=== PATIENT | female | born 1965 | race American Indian/Alaskan Native ===

== ENCOUNTER 2018-09-25 14:33 | Emergency (ER) | payer BC ==
[2018-09-25 14:50] VITALS: BP 162/119
[2018-09-25] MEDS ORDERED: Ondansetron 4 MG/2 ML SDV IVPUSH ONE (14:52)
[2018-09-25] MEDS ORDERED: Ketorolac 30 MG/ML SDV IVPUSH ONE (14:53)
[2018-09-25] MEDS ORDERED: Sodium Chloride 0.9% 1,000 ML IV SCH (15:00)
--- NOTE | 2018-09-25 15:07 | EDM.PDOC ---
ED HPI GENERAL MEDICAL PROBLEM - General Chief Complaint: Abdominal Pain Stated Complaint: RT SIDE PAIN Time Seen by Provider: 09/25/18 14:50 Source of Information: Reports: Patient, RN Notes Reviewed History Limitations: Reports: No Limitations - History of Present Illness INITIAL COMMENTS - FREE TEXT/NARRATIVE: Patient is a 53-year-old female who presents to the ED for evaluation of right flank pain that began suddenly 1 hour ago. She notes that she had a very small pain yesterday in the same area but it was not bothersome at that time. She states that today the pain has increased and would rate this at a 15 out of 10 on the pain scale. She states the pain kind of comes and goes in waves. She does not note anything that really worsen this or makes this feel better. She states she does not have a history kidney stones nor has she had a pain like this before ever in her life. She did not eat any type of foods that would have caused any aggravation to this. She denies any dysuria, urinary frequency , urinary urgency at this time. She has had her gallbladder removed and her uterus removed. Right Lower Abdominal Pain Score (Numeric/FACES): 10 - Related Data Allergies Allergy/AdvReac Type Severity Reaction Status Date / Time raspberry Allergy Other Verified 09/25/18 14:49 Home Meds: Home Meds Meloxicam [Mobic] 15 mg PO DAILY 10/26/15 [History] HYDROmorphone [Dilaudid] 2 mg PO Q4H PRN #16 tab 09/25/18 [Rx] Naproxen [Naprosyn] 500 mg PO Q12HR #20 tab 09/25/18 [Rx] Ondansetron [Zofran ODT] 4 mg PO Q6H PRN #28 tab.dis 09/25/18 [Rx] Past Medical History Musculoskeletal History: Reports: Back Pain, Chronic Other Musculoskeletal History: bulging discs - Past Surgical History GI Surgical History: Reports: Cholecystectomy Female Surgical History: Reports: Hysterectomy Social & Family History - Family History Family Medical History: Noncontributory - Tobacco Use Smoking Status *Q: Never Smoker - Recreational Drug Use Recreational Drug Use: No - Living Situation & Occupation Living situation: Reports: , with Family Occupation: Employed ED ROS GENERAL - Review of Systems Review Of Systems: See Below Constitutional: Denies: Fever, Chills HEENT: Reports: No Symptoms Respiratory: Reports: No Symptoms Cardiovascular: Reports: No Symptoms Endocrine: Reports: No Symptoms : Reports: Flank Pain (Right). Denies: Dysuria, Frequency, Urgency Musculoskeletal: Reports: No Symptoms Skin: Reports: No Symptoms Neurological: Reports: No Symptoms Psychiatric: Reports: No Symptoms Hematologic/Lymphatic: Reports: No Symptoms Immunologic: Reports: No Symptoms ED EXAM, RENAL/ - Physical Exam Exam: See Below Exam Limited By: No Limitations General Appearance: Alert, WD/WN, Mild Distress (Pt is balled up on the bed tapping her foot in obvious pain.) Eye Exam: Bilateral Eye: Normal Inspection Ears: Normal External Exam Nose: Normal Inspection Throat/Mouth: Normal Inspection, Normal Oropharynx Head: Atraumatic, Normocephalic Neck: Normal Inspection Respiratory/Chest: No Respiratory Distress, Lungs Clear, Normal Breath Sounds, No Accessory Muscle Use, Chest Non-Tender Cardiovascular: Normal Peripheral Pulses, Regular Rate, Rhythm, No Murmur GI/Abdominal: Normal Bowel Sounds, Soft, No Distention, Tender (Right flank pain ). No: Rigid, Rebound Back Exam: Normal Inspection. No: CVA Tenderness (L), CVA Tenderness (R) Extremities: Normal Inspection, Normal Capillary Refill Neurological: Alert, Oriented, Normal Cognition, No Motor/Sensory Deficits Psychiatric: Normal Affect, Normal Mood Skin Exam: Warm, Dry, Intact, Normal Color, No Rash Course - Vital Signs Last Recorded V/S: Last Vital Signs Temp 97.1 F 09/25/18 14:45 Pulse 56 L 09/25/18 14:45 Resp 16 09/25/18 14:45 BP 162/119 H 09/25/18 14:45 Pulse Ox 97 09/25/18 14:45 - Orders/Labs/Meds Orders: Active Orders 24 hr Category Date Time Status Strain Urine [RC] ASDIRECTED Care 09/25/18 14:52 Ordered UA W/MICROSCOPIC [URIN] Stat Lab 09/25/18 14:52 Ordered Sodium Chloride 0.9% @ 150 MLS/HR (1000ml Bag) Med 09/25/18 15:00 Ordered Sodium Chloride 0.9% [Normal Saline] 1,000 ml IV ASDIRECTED Medication Orders Sodium Chloride (Normal Saline) 1,000 mls @ 150 mls/hr IV ASDIRECTED ZOË Last Admin: 09/25/18 15:00 Dose: 150 mls/hr Meds: Medications Generic Name Dose Route Start Last Admin Trade Name Jhoan PRN Reason Stop Dose Admin Sodium Chloride 1,000 mls @ 150 mls/hr 09/25/18 15:00 09/25/18 15:00 Normal Saline IV 150 mls/hr ASDIRECTED ZOË Administration Discontinued Medications Generic Name Dose Route Start Last Admin Trade Name Jhoan PRN Reason Stop Dose Admin Hydromorphone HCl 0.5 mg 09/25/18 15:22 09/25/18 15:26 Dilaudid IVPUSH 09/25/18 15:23 0.5 mg ONETIME ONE Administration Hydromorphone HCl 0.5 mg 09/25/18 17:16 09/25/18 17:24 Dilaudid IVPUSH 09/25/18 17:17 0.5 mg ONETIME ONE Administration Ketorolac Tromethamine 30 mg 09/25/18 14:53 09/25/18 15:00 Toradol IVPUSH 09/25/18 14:54 30 mg ONETIME ONE Administration Ondansetron HCl 4 mg 09/25/18 14:52 09/25/18 15:00 Zofran IVPUSH 09/25/18 14:53 4 mg ONETIME ONE Administration - Re-Assessments/Exams Free Text/Narrative Re-Assessment/Exam: 09/25/18 15:08 Patient presents to the ED for evaluation of sudden onset abdominal pain. This is suspicious for kidney stone, I have ordered an abdomen/pelvis CT without contrast, 30 mg IV Toradol, 4 mg IV Zofran and some IV fluids for management of this. 09/25/18 15:28 RN informs me that the patient is still in an obvious amount of pain, initially she requested no strong pain medications however at this time I have ordered 0.5 mg IV Dilaudid to be giving 0.25 mg at a time for pain relief, the patient states that she gets really sleepy from narcotic pain medications, hence why she did not want to take him to begin with. We will start this low and slow and see how she tolerates a small dose. 09/25/18 16:[address] results are back and show that she has a 4.2 mm stone in the proximal right ureter near the UPJ, and 2 adjacent nonobstructing calculi seen within the lower right kidney and the largest one is measuring approximately 8 mm. 09/25/18 17:51 Will provide the patient with oral 2mg dilaudid for pain relief. She is to take 1/2 tablet to 1 full tablet every 4 hours as needed until the stone passes. She has been provided with Naprosyn for pain relief, she is to take this every 12 hours for pain relief. She has been provided with a script for zofran as well. Will recommend that she strain her urine and increase oral fluid intake. Departure - Departure Time of Disposition: 17:55 Disposition: Home, Self-Care 01 Condition: Fair Clinical Impression: Kidney stone on right side - Discharge Information *PRESCRIPTION DRUG MONITORING PROGRAM REVIEWED*: No *COPY OF PRESCRIPTION DRUG MONITORING REPORT IN PATIENT [place]: No Prescriptions: Naproxen [Naprosyn] 500 mg PO Q12HR #20 tab HYDROmorphone [Dilaudid] 2 mg PO Q4H PRN #16 tab PRN Reason: Pain Ondansetron [Zofran ODT] 4 mg PO Q6H PRN #28 tab.dis PRN Reason: Nausea Instructions: Kidney Stones, [id number], Dietary Guidelines to Help Prevent Kidney Stones Referrals: Rhina Sánchez, [employer] [Primary Care Provider] - Forms: ED Department Discharge Additional Instructions: You have been evaluated in the ED today for your right sided flank pain. Your CT demonstrated that you did have a kidney stone on your right side, this should take a few days to pass. You have been provided with pain medication please 1/2 to 1 full tablet of the Dilaudid every 4 hrs PRN for pain not taken away from the Naprosyn alone. You have been provided with oral Zofran for nausea please take this every 8 hours when necessary. You have been provided with Naprosyn please take this one tab by mouth twice a day for pain relief. These medications have been electronically sent to the [facility] in the [employer] [facility] Please increase her oral fluid intake as this will help the stone pass, please strain your urine to make sure that the stone has passed and few days. Please return to the ED if her symptoms change or worsen. - My Orders Last 24 Hours: My Active Orders 09/25/18 14:52 Strain Urine [RC] ASDIRECTED UA W/MICROSCOPIC [URIN] Stat 09/25/18 15:00 Sodium Chloride 0.9% @ 150 MLS/HR (1000ml Bag) Sodium Chloride 0.9% [Normal Saline] 1,000 ml IV ASDIRECTED - Assessment/Plan Last 24 Hours: My Active Orders 09/25/18 14:52 Strain Urine [RC] ASDIRECTED UA W/MICROSCOPIC [URIN] Stat 09/25/18 15:00 Sodium Chloride 0.9% @ 150 MLS/HR (1000ml Bag) Sodium Chloride 0.9% [Normal Saline] 1,000 ml IV ASDIRECTED
[2018-09-25] MEDS ORDERED: HYDROmorphone 1 MG/ML Syringe IVPUSH ONE ×2 (15:22→17:16)
--- NOTE | 2018-09-25 16:21 | CT ---
CT abdomen and pelvis Technique: Multiple axial sections were obtained from above the dome of the diaphragm inferiorly through the pubic symphysis. Intravenous and oral contrast not utilized. Study has been performed as ureteral stone protocol. Comparison: Previous CT abdomen and pelvis exam of 11/06/10. Findings: Right kidney collecting system is mildly dilated. These findings are caused by an obstructing stone located within the proximal right ureter near the UPJ measuring about 4.2 mm. 2 adjacent nonobstructing calculi are seen within the lower right kidney with largest measuring approximately 8 mm. No other abnormal calcifications are seen within the kidneys or ureters. Small portion of the visualized lung bases show nothing acute. Small cyst is noted within the dome of the right lobe of the liver measuring 6 mm compatible with a cyst. Second cyst is noted more inferiorly within the posterior right lobe of the liver measuring 1.3 cm. Largest cyst is noted posteriorly within the liver measuring 3.3 cm. Surgical clips are seen from prior cholecystectomy. Spleen appears within normal limits. Pancreas is within normal limits. Aorta shows no aneurysm. No retroperitoneal adenopathy or mesenteric abnormalities are seen. Appendix is seen which shows no dilatation. Small calcification is seen within the appendix compatible with small appendicolith. No pelvic mass or adenopathy is seen. No free fluid or inflammatory change is noted. Previous hysterectomy is noted. Bone window settings were reviewed which shows scattered degenerative change within the spine with vacuum phenomena is seen within the L3-4, L4-5 and L5-S1 discs. Impression: 1. Obstructing calculus measuring 4.2 mm located near the UPJ on the right side. 2. 2 nonobstructing calculi within the lower right kidney. 3. Other incidental findings as noted above. Diagnostic code #3
== END 2018-09-25 18:14 | disposition home or self-care (01) ==
LOC: JD.ED 14:33
DX: N20.2 Calculus of kidney with calculus of ureter (principal); Z91.018 Allergy to other foods; Z79.899 Other long term (current) drug therapy
CPT/HCPCS: 74176; 96361; 96374; 96375; 96376; 99284; J1170; J1885; J2405; J7040

== ENCOUNTER 2018-12-19 13:03 | Emergency (ER) | payer BC ==
[2018-12-19 13:15] VITALS: BP 147/118
[2018-12-19] MEDS ORDERED: Metoclopramide 10 MG/2 ML SDV IVPUSH ONE (13:22)
[2018-12-19] MEDS ORDERED: HYDROmorphone 1 MG/ML Syringe IVPUSH ONE (13:22)
[2018-12-19] MEDS ORDERED: HYDROmorphone 1 MG/ML Syringe ONE (13:26)
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
[2018-12-19] MEDS ORDERED: Sodium Chloride 0.9% 1,000 ML IV SCH (13:30)
--- NOTE | 2018-12-20 07:21 | CR ---
Chest: Portable view of the chest was obtained. Comparison: Prior chest x-ray is not available. Heart is slightly prominent. Tortuous thoracic aorta is seen. Lungs are clear. Bony structures are grossly intact. Impression: 1. Heart size is slightly prominent although is accentuated from portable technique. 2. Nothing acute is definitely identified on portable chest x-ray. Diagnostic code #2
--- NOTE | 2018-12-20 08:08 | CR ---
Right wrist: Four views of the right wrist were obtained. Comparison: No prior wrist exam. Slightly comminuted distal radial fracture is seen with articular extension and posterior impaction. Posterior tilt of the distal radial articular margin is seen. Deformity of the ulnar styloid process is seen having the appearance of an old ununited fracture. No additional bony abnormality is appreciated. Soft tissue swelling is noted. Impression: 1. Distal radial fracture as described above. 2. Other findings believed to be incidental. Diagnostic code #3
--- NOTE | 2018-12-20 08:08 | CR ---
Right tibia and fibula: AP and lateral views of the right tibia and fibula were obtained. Comparison: No previous study. Plantar spur is noted. Spur noted at the attachment of the Achilles tendon to the calcaneus is seen. Incidental soft tissue calcifications are present within the deleon. Mild chondrocalcinosis is noted within the menisci of the knee. No acute fracture or dislocation is seen. Impression: 1. Calcaneal spurs and soft tissue findings. 2. No acute bony abnormality is appreciated. Diagnostic code #2
== END 2018-12-19 15:37 | disposition home or self-care (01) ==
LOC: JD.ED 13:03
DX: S52.501A Unspecified fracture of the lower end of right radius, initial encounter for closed fracture (principal); S52.611A Displaced fracture of right ulna styloid process, initial encounter for closed fracture; S80.11XA Contusion of right lower leg, initial encounter; M54.5 Low back pain; V86.99XA Unspecified occupant of other special all-terrain or other off-road motor vehicle injured in nontraffic accident, initial encounter
CPT/HCPCS: 29125; 36415; 71045; 73110; 73590; 80053; 85007; 85027; 93005; 96361; 96374; 96375; 99284; J1170; J2765; J7040; 29105; 93010

== ENCOUNTER 2020-01-19 21:47 | Emergency (ER) | payer BC ==
[2020-01-19 22:10] VITALS: BP 130/78; PULSE 73
[2020-01-19] MEDS ORDERED: cefTRIAXone 1 GM, Lidocaine 1% 2.1 ML IM SCH ×2 (22:15)
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
[2020-01-19] MEDS ORDERED: Diphtheria,Pertussis(Acell),Tetanus Vaccine 0.5 ML Syringe IM ONE (22:21)
== END 2020-01-19 22:39 | disposition home or self-care (01) ==
LOC: JD.ED 21:47
DX: S80.811A Abrasion, right lower leg, initial encounter (principal); L03.115 Cellulitis of right lower limb; Z23 Encounter for immunization; Z91.018 Allergy to other foods; Z79.899 Other long term (current) drug therapy; X58.XXXA Exposure to other specified factors, initial encounter
CPT/HCPCS: 90471; 90715; 96372; 99283; J0696; J2001

== ENCOUNTER 2020-05-25 17:25 | Emergency (ER) | payer BC ==
[2020-05-25 17:39] VITALS: BP 169/97; PULSE 73
[2020-05-25] MEDS ORDERED: Linezolid 600 MG in Premix Bag 1 BAG IV ONE (17:48)
[2020-05-25] MEDS ORDERED: Sodium Chloride 0.9% 10 ML Syringe FLUSH PRN (17:48)
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
== END 2020-05-25 19:45 | disposition home or self-care (01) ==
LOC: JD.ED 17:25
DX: L03.115 Cellulitis of right lower limb (principal); M19.90 Unspecified osteoarthritis, unspecified site; Z79.899 Other long term (current) drug therapy; Z91.018 Allergy to other foods
CPT/HCPCS: 36415; 85025; 86140; 96365; 99283; J2020; 99284

== ENCOUNTER 2020-12-29 08:17 | Emergency (ER) | payer BC ==
[2020-12-29 08:30] VITALS: BP 170/105; PULSE 81
--- NOTE | 2020-12-29 08:38 | EDM.PDOC ---
ED HPI GENERAL MEDICAL PROBLEM - General Chief Complaint: General Stated Complaint: LEG BLEEDING Time Seen by Provider: 12/29/20 08:27 - History of Present Illness INITIAL COMMENTS - FREE TEXT/NARRATIVE: 55-year-old female presents the emergency room with bleeding from her right leg. Patient has had ulcerations on the lateral aspect of her right lower leg since May of this last year. She has been seen a few times by the wound care people in [place]. And has been seen a few times here in the emergency room. She thinks this initially started after she had a anterior deleon injury after she inadvertently kicked the bucket of a tractor. She had a cellulitis there if this did get better with treatment but then it seemed to come back on the lateral aspect of her leg. Today the patient changed her dressing and noticed that it started bleeding quite heavily. They got a good wrap on it and by the time she got here it was done bleeding. - Related Data Allergies Allergy/AdvReac Type Severity Reaction Status Date / Time raspberry Allergy Severe Hives Verified 12/29/20 08:30 Home Meds: Home Meds Meloxicam [Mobic] 15 mg PO DAILY 10/26/15 [History] Magnesium Oxide [Mag-Oxide] 800 mg PO DAILY 01/19/20 [History] Metaxalone [Skelaxin] 800 mg PO ASDIRECTED PRN 01/19/20 [History] traMADol [Ultram] 50 mg PO Q6H PRN 01/19/20 [History] Multivitamin with Minerals [Multiple Vitamin] 1 tab PO DAILY 05/25/20 [History] Doxycycline [Vibramycin] 100 mg PO BID #20 cap 12/29/20 [Rx] Mupirocin Oint [Bactroban Oint] 22 gm TP BID #1 tube 12/29/20 [Rx] Past Medical History - Past Health History Medical/Surgical History: Denies Medical/Surgical History HEENT History: Reports: Other (See Below) Other HEENT History: glasses Musculoskeletal History: Reports: Arthritis, Back Pain, Chronic Other Musculoskeletal History: bulging discs Neurological History: Reports: Other (See Below) - Past Surgical History GI Surgical History: Reports: Cholecystectomy Female Surgical History: Reports: Hysterectomy Social & Family History - Family History Family Medical History: No Pertinent Family History - Caffeine Use Caffeine Use: Reports: Coffee - Living Situation & Occupation Living situation: Reports: , with Family Occupation: Employed ED ROS GENERAL - Review of Systems Review Of Systems: See Below Constitutional: Reports: No Symptoms Respiratory: Reports: No Symptoms Cardiovascular: Reports: No Symptoms ED EXAM, GENERAL - Physical Exam Exam: See Below Exam Limited By: No Limitations General Appearance: Alert, No Apparent Distress, Other (Her blood pressure is elevated but she states her blood pressure is always good at home but when she goes to the doctor it elevates.) Respiratory/Chest: No Respiratory Distress, Lungs Clear, Normal Breath Sounds Cardiovascular: Regular Rate, Rhythm, No Edema, No Murmur Extremities: Other (Trace edema both lower extremities and she has significant varicose changes) Skin Exam: Other (Right lower leg lateral aspect she has an area that looks like stasis dermatitis with 2 ulcerations one 1-1/2 x 1 cm the other 1-1/2 x 2 cm the larger lower lesion was the one that bled this morning.) Course - Re-Assessments/Exams Free Text/Narrative Re-Assessment/Exam: 12/29/20 09:10 The patient is not actively bleeding at this time and I do not have much to offe r her she is got some mild erythema around these ulcer bases we will start her on doxycycline and she may need to continue this for quite some time. She is to continue using her support hose. I did discuss the patient's case with Dr. Curiel, our on-call surgeon, he will be happy to see the patient follow-up. Departure - Departure Time of Disposition: 09:11 Disposition: Home, Self-Care 01 Clinical Impression: Venous stasis ulcers - Discharge Information Referrals: Peyton Anderson NP [Primary Care Provider] - Triston Curiel MD [Physician] - Forms: ED Department Discharge Additional Instructions: Return to the emergency room with any questions problems or concerning symptoms. You have been started on 2 medications the first 1 is doxycycline, this is an antibiotic take it twice daily. With your magnesium supplementation take the magnesium in between your doxycycline doses. The second medication is Bactroban ointment apply this twice daily with dressing changes. Follow-up with Dr. Curiel this next week for recheck.
== END 2020-12-29 09:29 | disposition home or self-care (01) ==
LOC: JD.ED 08:17
DX: I83.018 Varicose veins of right lower extremity with ulcer other part of lower leg (principal); L97.819 Non-pressure chronic ulcer of other part of right lower leg with unspecified severity; Z91.018 Allergy to other foods; Z79.899 Other long term (current) drug therapy
CPT/HCPCS: 99282; 99283

== ENCOUNTER 2022-09-17 07:40 | Day surgery (SDC) | payer BC ==
[~2022-09-17 07:40] MED LIST: Acetaminophen 325 MG Tab PO SCH; Lactated Ringers 1,000 ML IV SCH; Lidocaine 1%/Sod Bicarbonate in NS 8.4% 1 ML Syringe IDERM PRN; Midazolam 1 MG/ML 2 ML SDV ONE; Pregabalin 25 MG Cap PO SCH; Propofol 200 MG/20 ML SDV ONE; Sodium Chloride 0.9% 10 ML Syringe FLUSH PRN; Sodium Chloride 0.9% 10 ML Syringe FLUSH SCH; ceFAZolin 2 GM Vial ONE; fentaNYL 100 MCG/2 ML SDV ONE; oxyCODONE ER 10 MG TAB.ER PO SCH
[2022-09-17] MEDS ORDERED: ePHEDrine 50 MG/ML SDV ONE (09:59)
[2022-09-17] MEDS ORDERED: Ondansetron 4 MG/2 ML SDV ONE (10:00)
[2022-09-17] MEDS ORDERED: Ketorolac 30 MG/ML SDV ONE (10:00)
[2022-09-17] MEDS: Tranexamic Acid 1,000 MG/10 ML Vial ONE ×2 (10:14→10:35)
[2022-09-17] MEDS ORDERED: HYDROmorphone 0.5 MG/0.5 ML Syringe IVPUSH PRN (10:15)
[2022-09-17] MEDS: Morphine 8 MG, EPINEPHrine 0.3 MG, Cefuroxime 750 MG, Ketorolac 30 MG, Sodium Chloride ... PRN ×10 (10:15→10:32)
[2022-09-17] MEDS ORDERED: Ondansetron 4 MG/2 ML SDV IVPUSH PRN (10:15)
[2022-09-17] MEDS: Vancomycin 1 GM SDV ONE ×2 (10:15→10:35)
[2022-09-17] MEDS ORDERED: fentaNYL 100 MCG/2 ML SDV IVPUSH PRN (10:15)
[2022-09-17] MEDS ORDERED: Propofol 200 MG/20 ML SDV ONE (10:37)
[2022-09-17] MEDS ORDERED: oxyCODONE 5 MG Tab PO SCH (11:32)
[2022-09-17 15:27] VITALS: BP 120/70; PULSE 70
== END 2022-09-17 15:25 | disposition home or self-care (01) ==
LOC: JD.SDS 07:40
PROVIDERS: ATTEND Orthopaedic Surgery
DX: M16.12 Unilateral primary osteoarthritis, left hip (principal); G89.29 Other chronic pain; M81.0 Age-related osteoporosis without current pathological fracture; M48.061 Spinal stenosis, lumbar region without neurogenic claudication; M47.816 Spondylosis without myelopathy or radiculopathy, lumbar region; M47.899 Other spondylosis, site unspecified; Z91.040 Latex allergy status; Z88.5 Allergy status to narcotic agent; Z91.018 Allergy to other foods
CPT/HCPCS: 0055T; 27130; 36415; 73501; 86850; 86900; 86901; 97110; 97116; 97161; A9270; C1713; C1776; J0171; J0690; J0697; J1885; J2250; J2270; J2405; J2704; J3010; J3370; J7120; 01214; J3490